=== PATIENT | female | born 1930 | race Caucasian/White ===

== ENCOUNTER → 2016-12-16 | Day surgery (SDC) | payer MEDICARE, OTHER ==
[~2016-12-16] MED LIST: ASPI-119 PO; BUPIVACAINE/EPINEPHRINE 0.5% PF 30 ML VIAL ONE; DICL75TA PO; ERYTOIN10 LEFT EYE; INSU1INJ14 SQ; KETOROLAC TROMETHAMINE 30 MG/ML (IVP) VIAL IV PUSH ONE; LACTATED RINGER'S 1000 ML INJ 1,000 ML ONE; LANTINJ SQ; ONDANSETRON HCL 4 MG/2 ML VIAL IV PUSH ONE; PROPOFOL 200 MG/20 ML AMP IV ONE; ceFAZolin INJ 1,000 MG VIAL ONE
--- NOTE | 2016-12-16 14:45 | TN ---
cc: DERICK RUBIO DATE OF SURGERY: 12/16/2016. PREOPERATIVE DIAGNOSIS: 1. Internal derangement of the right knee. 2. Probable medial and lateral meniscus tear, right knee. POSTOPERATIVE DIAGNOSIS: 1. Complex tear lateral meniscus right knee. 2. Osteophytes right knee, lateral compartment. OPERATIVE PROCEDURE PERFORMED: 1. Arthroscopy of the right knee. 2. Arthroscopic lateral meniscectomy. 3. Abrasion chondroplasty, lateral femoral condyle, lateral tibial plateau and medial femoral condyle. SURGEON: Derick Rubio MD. ANESTHESIA: General. ESTIMATED BLOOD LOSS: Minimal. INDICATIONS FOR THE PROCEDURE: This is an 86-year-old female status post previous left knee medial compartment resurfacing arthroplasty doing well. The patient is having increasing locking, catching and pain in the region of her right knee. This patient has continued to be painful. She is very symptomatic. She presents for surgical treatment. DESCRIPTION OF THE PROCEDURE IN DETAIL: The patient was brought to the operating room and anesthetized in the supine position. The right leg was scrubbed with alcohol followed by Hibiclens followed Chloraprep and draped sterilely. Antibiotics were given within a one hour time window and a time-out was done. Inflow was established anterior and medially. The knee was drained of an effusion. The suprapatellar pouch was unremarkable. The retropatellar surface showed grade 2 changes. The medial compartment showed slight degenerative irregularity of the posterior horn of the meniscus. The medial compartment showed grade II and III changes of the medial femoral condyle in one area, which was debrided. The ACL was normal. The lateral compartment showed grade 4 changes of the lateral tibial plateau. There was a complex tear of the lateral meniscus. A spinal needle was introduced along the lateral joint line. A separate incision was made and straight and angled punches were used to take meniscus back to a stable rim. The meniscal debrider was used to debride this region in performing a limited synovectomy of this region as well as removing a bony osteophyte along the medial edge of the lateral femoral condyle. All fragments were floated free from the joint. The wound was irrigated copiously. The portals were closed with 0.25% Marcaine with epinephrine and closed with Steri-Strips and Benzoin. The sponge count, needle counts and instrument counts were all correct. The patient tolerated the procedure well and was taken to the recovery room in satisfactory condition. Derick MD GEE Welch/FATOU /2:32 PM /2:39 PM
== END | disposition home or self-care (01) ==
LOC: ESDC 11:31
PROVIDERS: ATTEND Orthopaedic Surgery Orthopaedic Surgery of the Spine
DX: S83.271A Complex tear of lateral meniscus, current injury, right knee, initial encounter (principal); M25.761 Osteophyte, right knee; E11.9 Type 2 diabetes mellitus without complications; Z79.4 Long term (current) use of insulin
CPT/HCPCS: 01400; 29881; 82948; J0690; J1885; J2405; J3010; J7120